=== PATIENT | male | born 1965 | race Caucasian/White ===

== ENCOUNTER 2021-09-02 10:14 | Outpatient (CLI) | payer OTHER, SELFPAY ==
[2021-09-02 10:36] LABS: Basophils Absolute Auto 0.1 K/mm3 (0.0-0.1); Basophils Percent Auto 0.7 % (0.2-1.2); Eosinophils Absolute Auto 0.2 K/mm3 (0-0.3); Hematocrit 51.4 % (42.0-52.0); Hemoglobin 17.3 g/dL (14.0-18.0); Immature Granulocyte Absolute 0.02 K/mm3 (0.00-0.031); Immature Granulocyte Percent A 0.3 % (0-0.5); Lymphocytes Absolute Auto 2.23 K/mm3 (0.9-3.2); Lymphocytes Percent Auto 29.9 % (18.3-44.2); Mean Corpuscular HGB Conc 33.7 g/dl (32-36); Mean Corpuscular Hemoglobin 31.2 pg (26-34); Mean Corpuscular Volume 92.8 fl (80-100); Mean Platelet Volume 9.1 fl (7.4-10.4); Monocytes Absolute Auto 0.5 K/mm3 (0.1-0.6); Neutrophils Absolute Auto 4.4 K/mm3 (1.3-6.7); Neutrophils Percent Auto 59.1 % (45.5-73.1); Platelet Count Result 233 k/mm3 (150-375); Red Blood Count 5.54 M/mm3 (4.6-6.20); Red Cell Distribution Width 12.1 % (11.5-14.5); White Blood Count 7.5 K/mm3 (4.5-10.0)
[2021-09-02 10:45] LABS: Hemoglobin A1C 7.8 % (<5.7)
[2021-09-02 10:50] LABS: Alanine Aminotransferase 75 U/L (4-50); Albumin Level 4.6 g/dL (3.5-5.1); Alkaline Phosphatase 80 U/L (38-126); Anion Gap 7 mmol/L (8-16); Aspartate Amino Transferase 47 U/L (17-59); Bilirubin,Total 0.9 mg/dL (0.2-1.3); Blood Urea Nitrogen 15 mg/dL (9-20); Calcium 9.5 mg/dL (8.4-10.2); Carbon Dioxide 29 mmol/L (22-30); Chloride 104 mmol/L (98-107); Cholesterol 188 mg/dL (0-200); Estimated Glomerular Filt Rate > 60; Glucose 209 mg/dL (65-110); HDL Direct 55 mg/dL; Potassium 4.4 mmol/L (3.4-5.0); Sodium 140 mmol/L (137-145); Triglycerides 84 mg/dL (<150); Uric Acid 7.5 mg/dL (3.5-8.5)
[2021-09-02 11:00] LABS: LDL Cholesterol Direct 107 mg/dL
[2021-09-06 22:06] LABS: PSA, Free 0.66 ng/mL; PSA, Total 2.3 ng/mL (<=4.0)
== END 2021-09-02 10:15 | disposition home or self-care (01) ==
PROVIDERS: PCP Family Medicine; Visit Provider Family Medicine
DX: I10 Essential (primary) hypertension (principal); R73.03 Prediabetes; Z13.220 Encounter for screening for lipoid disorders; E79.0 Hyperuricemia without signs of inflammatory arthritis and tophaceous disease; N40.1 Benign prostatic hyperplasia with lower urinary tract symptoms; R53.82 Chronic fatigue, unspecified
CPT/HCPCS: 36415; 80053; 80061; 83036; 84153; 84154; 84443; 84550; 85025

== ENCOUNTER 2021-11-29 00:15 | Day surgery (SDC) | payer OTHER, SELFPAY ==
[2021-11-17 10:42] VITALS: BMI 33.5
[2021-11-29 09:06] VITALS: BP 159/83; PULSE 81; RESP 16; TEMP 36.7; O2SAT 100
[2021-11-29] MEDS: LACTATED RINGERS 1,000 ML 150 ML IV CONT (09:26)
[2021-11-29 09:32] LABS: Glucose Point of Care 181 mg/dl (65-105)
--- NOTE | 2021-11-29 10:10 | WPDANESEPPF ---
Anes - Initial Pre Proc Eval Procedure: Operation Date: 11/29/21 10:30 Proposed Procedures p Screening Colonoscopy - Getachew Hardy MD Date/Time: 11/29/21 10:10 Surgeon: Getachew Hardy MD Pre Op Diagnosis: neoplasm screening Patient Data Age: 56 Gender: M Height: 1.98 m Weight: 132 kg Last Vital Signs Temp 98.1 F 11/29/21 09:06 Pulse 81 11/29/21 09:06 Resp 16 11/29/21 09:06 BP 159/83 H 11/29/21 09:06 Pulse Ox 100 11/29/21 09:06 Allergies Allergy/AdvReac Type Severity Reaction Status Date / Time No Known Allergies Allergy Verified 11/29/21 09:05 Home Medications Medication Instructions Recorded Confirmed Type allopurinol 100 mg tablet 100 mg PO DAILY 05/31/21 11/17/21 History atorvastatin 20 mg tablet 20 mg PO DAILY 05/31/21 11/17/21 History cholecalciferol (vitamin D3) 50 50 mcg PO DAILY 05/31/21 11/17/21 History mcg (2,000 unit) tablet indomethacin 25 mg capsule 25 mg PO Q6H 05/31/21 11/17/21 History lisinopril 40 mg tablet 40 mg PO DAILY 05/31/21 11/17/21 History metformin 500 mg tablet,extended 500 mg PO DAILY 05/31/21 11/17/21 History release 24hr tamsulosin 0.4 mg capsule 0.4 mg PO DAILY 05/31/21 11/17/21 History gabapentin 100 mg capsule 100 mg PO TID #90 cap 09/02/21 11/17/21 Rx dapagliflozin 10 mg tablet 10 mg PO DAILY 09/09/21 11/17/21 History sitagliptin 50 mg-metformin 1,000 1 tablet PO BID #60 tablet 09/09/21 11/17/21 Rx mg tablet Laboratory Tests 11/29/21 09:30 POC Capillary Glucose 181 mg/dl H mg/dl (65-105) Patient hx anesthesia problems: none Family hx anesthesia problems: none Results Review: All pre-operative results and documents have been reviewed as part of the pre-operative evaluation. [facility] Past Medical History Medical History Benign essential HTN Borderline diabetes mellitus BPH (benign prostatic hyperplasia) Gout Hyperlipidemia Spondylosis of lumbar spine Family History Family History Father Hypertension Mother History of stroke Social History Social History Social History: twice Smoking status: Never smoker Second hand tobacco smoke exposure: No Alcohol intake: current Drinks per week: 7 Substance use: never Substance use type: does not use Additional living arrangements comments: Pt and his girlfriend live together. Gender identity (if verbalized by the patient): Male Sexual Orientation (if Verbalized by the Patient): Straight or Heterosexual Anes - Eval Final PreProcedure Day of Procedure 11/29/21 10:10 Patient weight: obese Heart: regular rate and rhythm Lungs: clear to auscultation Airway: Mallampati scale class II Neurological: alert and oriented Last oral intake: >/= 8 hours ASA classification: III Emergent: no Anesthetic plan: proceed Anesthesia type and monitoring: general GIVS and standard monitoring Results Review: All pre-operative results and documents have been reviewed as part of the pre-operative evaluation. Informed Consent: The patient's anesthetic plan and its attendant risks and benefits were discussed with the patient/family/POA. Questions were solicited and answers provided to the satisfaction of the patient/family/POA.
--- NOTE | 2021-11-29 10:29 | PM.HPGS ---
History of Present Illness History of Present Illness Consent: Risks, benefits, and alternatives have been discussed and questions answered. Patient agrees to proceed with procedure. Chief complaint: neoplasm screening Narrative: Tj Clark is a 56 year old male here for screening colonoscopy, last one 4-5 years ago. Review of Systems Constitutional: Constitutional: Denies headache(s) and Denies weakness Eyes: Eyes: Denies blurry vision ENT: Reports Normal hearing present, Denies headache(s) and Denies neck pain Cardiovascular: Cardiovascular: Denies chest pain and Denies dyspnea Respiratory: Respiratory: Denies dyspnea Gastrointestinal: Gastrointestinal: Reports no additional gastrointestinal complaints Genitourinary: Genitourinary: Denies dysuria Musculoskeletal: Musculoskeletal: Denies neck pain Integumentary/Breasts: Skin/Breast: Denies dry skin Neurologic: Reports Normal hearing present, Denies headache(s) and Denies weakness Psychiatric: Psychiatric: Denies anxiety Endocrine: Endocrine: Denies change in body appearance Hematologic/Lymphatic: Hematologic/Lymphatic: Denies easy bleeding Allergic/Immunologic: Allergic/Immunologic: Denies urticaria PMFSH Past Medical History Medical History Benign essential HTN Borderline diabetes mellitus BPH (benign prostatic hyperplasia) Gout Hyperlipidemia Spondylosis of lumbar spine Family History Family History Father Hypertension Mother History of stroke Social History Social History Social History: twice Smoking status: Never smoker Second hand tobacco smoke exposure: No Alcohol intake: current Drinks per week: 7 Substance use: never Substance use type: does not use Additional living arrangements comments: Pt and his girlfriend live together. Gender identity (if verbalized by the patient): Male Sexual Orientation (if Verbalized by the Patient): Straight or Heterosexual Meds Home Medications and Allergies Home Medications Medication Instructions Recorded Confirmed Type allopurinol 100 mg tablet 100 mg PO DAILY 05/31/21 11/17/21 History atorvastatin 20 mg tablet 20 mg PO DAILY 05/31/21 11/17/21 History cholecalciferol (vitamin D3) 50 50 mcg PO DAILY 05/31/21 11/17/21 History mcg (2,000 unit) tablet indomethacin 25 mg capsule 25 mg PO Q6H 05/31/21 11/17/21 History lisinopril 40 mg tablet 40 mg PO DAILY 05/31/21 11/17/21 History metformin 500 mg tablet,extended 500 mg PO DAILY 05/31/21 11/17/21 History release 24hr tamsulosin 0.4 mg capsule 0.4 mg PO DAILY 05/31/21 11/17/21 History gabapentin 100 mg capsule 100 mg PO TID #90 cap 09/02/21 11/17/21 Rx dapagliflozin 10 mg tablet 10 mg PO DAILY 09/09/21 11/17/21 History sitagliptin 50 mg-metformin 1,000 1 tablet PO BID #60 tablet 09/09/21 11/17/21 Rx mg tablet Allergies Allergy/AdvReac Type Severity Reaction Status Date / Time No Known Allergies Allergy Verified 11/29/21 09:05 Vital Signs Vital Signs - 24 hr 11/29/21 09:06 Temperature 98.1 F Pulse Rate 81 Respiratory Rate 16 Blood Pressure 159/83 H Pulse Oximetry 100 Exam Const: General: comfortable and no acute distress HENMT: General nose exam: Normal nares present Eyes: General: appearance normal, both eyes and all related structures Neck: Neck: no JVD Resp: Auscultation: clear to auscultation bilaterally Cardio: Rate: regular rate Rhythm: regular rhythm GI: Inspection: non-distended GI Palp: Yes Soft to palpation Skin: General skin exam: normal color Neuro: General: gait normal Speech: normal speech Extrem: General: normal to inspection Psych: Mental Status: mental status grossly normal Assessment and Plan Assessment and plan (1) Colon cancer screening: Code(s)
[2021-11-29 10:53] VITALS: BP 116/77; PULSE 67; RESP 25; O2SAT 98
[2021-11-29 11:03] VITALS: BP 131/77; PULSE 62; RESP 16; O2SAT 99
[2021-11-29 11:13] VITALS: BP 136/88; PULSE 60; RESP 17; O2SAT 98
== END 2021-11-29 11:18 | disposition home or self-care (01) ==
PROVIDERS: PCP Family Medicine; Visit Provider Internal Medicine Gastroenterology
PROC: 0DJD8ZZ Inspection of Lower Intestinal Tract, Via Natural or Artificial Opening Endoscopic (ICD-10-PCS; CPT 45378; principal; 2021-11-29 10:30)
DX: Z12.11 Encounter for screening for malignant neoplasm of colon (principal); K63.5 Polyp of colon; I10 Essential (primary) hypertension; N40.0 Benign prostatic hyperplasia without lower urinary tract symptoms; E78.5 Hyperlipidemia, unspecified; M10.9 Gout, unspecified; M47.816 Spondylosis without myelopathy or radiculopathy, lumbar region; R73.03 Prediabetes; K64.8 Other hemorrhoids
CPT/HCPCS: 45380; 82948; 88305; J2704; J7120

== ENCOUNTER 2022-03-16 08:48 | Outpatient (CLI) | payer OTHER, SELFPAY ==
[2022-03-16 09:51] LABS: Creatinine Urine 121.8 mg/dL
[2022-03-16 09:55] LABS: MALB Creatinine Ratio 14.4 mg/g (0-30); Microalbumin Urine Random 17.5 mg/L (0-16.7)
[2022-03-16 10:07] LABS: Alanine Aminotransferase 50 U/L (6-50); Albumin Level 4.4 g/dL (3.5-5.1); Alkaline Phosphatase 64 U/L (38-126); Anion Gap 8 mmol/L (8-16); Aspartate Amino Transferase 32 U/L (17-59); Bilirubin,Total 0.8 mg/dL (0.2-1.3); Blood Urea Nitrogen 17 mg/dL (9-20); Calcium 9.5 mg/dL (8.4-10.2); Carbon Dioxide 28 mmol/L (22-30); Chloride 99 mmol/L (98-107); Cholesterol 171 mg/dL (0-200); Estimated Glomerular Filt Rate > 60; Glucose 175 mg/dL (65-110); HDL Direct 57 mg/dL; Potassium 4.3 mmol/L (3.4-5.0); Sodium 135 mmol/L (137-145); Triglycerides 84 mg/dL (<150)
[2022-03-16 10:18] LABS: LDL Cholesterol Direct 90 mg/dL
[2022-03-16 10:40] LABS: Hemoglobin A1C 7.3 % (<5.7)
== END 2022-03-16 08:49 | disposition home or self-care (01) ==
LOC: ANHLAB 08:51
PROVIDERS: PCP Family Medicine; Visit Provider Family Medicine
DX: I10 Essential (primary) hypertension (principal); E11.9 Type 2 diabetes mellitus without complications; E78.2 Mixed hyperlipidemia
CPT/HCPCS: 36415; 80053; 80061; 82043; 83036

== ENCOUNTER 2022-09-07 17:02 | Outpatient (CLI) | payer OTHER, SELFPAY ==
[2022-09-07 17:32] LABS: Basophils Percent Auto 0.5 % (0.2-1.2); Eosinophils Absolute Auto 0.2 K/mm3 (0-0.3); Eosinophils Percent Auto 3.6 % (0-4.4); Hematocrit 48.3 % (42.0-52.0); Hemoglobin 16.7 g/dL (14.0-18.0); Immature Granulocyte Absolute 0.01 K/mm3 (0.00-0.031); Immature Granulocyte Percent A 0.2 % (0-0.5); Lymphocytes Absolute Auto 2.43 K/mm3 (0.9-3.2); Lymphocytes Percent Auto 44.2 % (18.3-44.2); Mean Corpuscular HGB Conc 34.6 g/dl (32-36); Mean Corpuscular Hemoglobin 30.1 pg (26-34); Mean Corpuscular Volume 87.2 fl (80-100); Mean Platelet Volume 9.1 fl (7.4-10.4); Monocytes Absolute Auto 0.4 K/mm3 (0.1-0.6); Monocytes Percent Auto 6.7 % (2.6-8.5); Neutrophils Absolute Auto 2.5 K/mm3 (1.3-6.7); Neutrophils Percent Auto 44.8 % (45.5-73.1); Platelet Count Result 178 k/mm3 (150-375); Red Blood Count 5.54 M/mm3 (4.6-6.20); Red Cell Distribution Width 11.5 % (11.5-14.5); White Blood Count 5.5 K/mm3 (4.5-10.0)
[2022-09-07 17:43] LABS: Alanine Aminotransferase 69 U/L (6-50); Albumin Level 4.5 g/dL (3.5-5.1); Alkaline Phosphatase 76 U/L (38-126); Anion Gap 7 mmol/L (8-16); Aspartate Amino Transferase 45 U/L (17-59); Bilirubin,Total 0.6 mg/dL (0.2-1.3); Blood Urea Nitrogen 15 mg/dL (9-20); Carbon Dioxide 29 mmol/L (22-30); Chloride 97 mmol/L (98-107); Creatine Kinase 41 U/L (55-170); Estimated Glomerular Filt Rate > 60; Glucose 309 mg/dL (65-110); Potassium 4.4 mmol/L (3.4-5.0); Sodium 133 mmol/L (137-145)
[2022-09-07 19:27] LABS: Hemoglobin A1C 9.2 % (<5.7)
== END 2022-09-07 17:03 | disposition home or self-care (01) ==
LOC: ANHLAB 17:03
PROVIDERS: PCP Family Medicine; Visit Provider Family Medicine
DX: I10 Essential (primary) hypertension (principal); E11.9 Type 2 diabetes mellitus without complications; M79.10 Myalgia, unspecified site
CPT/HCPCS: 36415; 80053; 82550; 83036; 85025

== ENCOUNTER 2022-12-20 14:30 | Outpatient (RCR) | payer OTHER, SELFPAY | END 2023-01-29 08:44 | disposition home or self-care (01) | LOC: ANHDMC 14:30 | PROVIDERS: PCP Family Medicine; Visit Provider Family Medicine | DX: E11.22 Type 2 diabetes mellitus with diabetic chronic kidney disease (principal); N18.9 Chronic kidney disease, unspecified; E11.65 Type 2 diabetes mellitus with hyperglycemia; Z71.89 Other specified counseling | CPT/HCPCS: G0108; G0109 ==

== ENCOUNTER 2024-01-30 09:37 | Emergency (ER) | payer OTHER, SELFPAY ==
--- NOTE | ~2024-01-30 | XR_ITS ---
EXAMINATION: XR hand RT min 3V DATE: 01/30/2024 12:09 INDICATION: Right hand second digit injury. TECHNIQUE: 3 views of right hand were obtained. COMPARISON: None. FINDINGS: Bone alignment is normal. No fracture. 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 IMPRESSION: 1. No fracture or radiopaque foreign body. Reviewed, dictated and finalized at location A.
[2024-01-30 09:54] VITALS: BP 168/78; PULSE 88; RESP 16; TEMP 36.4; O2SAT 99
[2024-01-30] MEDS: cefTRIAXone 1 GM VIAL IM (12:10)
[2024-01-30] MEDS: LIDOCAINE HCL 1% LOCAL INJ 10 ML VIAL 2.1 ML XX (12:11)
--- NOTE | 2024-01-30 12:42 | ED.GENADULT ---
HPI - General Adult General Chief complaint: Wound/Laceration Stated complaint: lac Time Seen by Provider: 01/30/24 11:01 History of Present Illness HPI narrative: Tj Clark is a 58 y/o male who presents with reports of pulling wire yesterday morning and hit his right proximal index finger on a metal box an sliced it open. Related Data Home Medications Medication Instructions Recorded Confirmed allopurinol 100 mg tablet 100 mg PO DAILY 05/31/21 06/05/23 atorvastatin 20 mg tablet 20 mg PO DAILY 05/31/21 06/05/23 cholecalciferol (vitamin D3) 50 50 mcg PO DAILY 05/31/21 06/05/23 mcg (2,000 unit) tablet lisinopril 40 mg tablet 40 mg PO DAILY 05/31/21 06/05/23 tamsulosin 0.4 mg capsule 0.4 mg PO DAILY 05/31/21 06/05/23 insulin glargine 100 unit/mL (3 8 unit subcut QAM 06/05/23 06/05/23 mL) subcutaneous pen Allergies Allergy/AdvReac Type Severity Reaction Status Date / Time No Known Allergies Allergy Verified 01/30/24 10:39 Review of Systems Review of Systems: All systems reviewed & are unremarkable except as noted in HPI and below PMFSH Past Medical History Medical History Benign essential HTN BPH (benign prostatic hyperplasia) Gout Hyperlipidemia Muscle ache ROBERTA (obstructive sleep apnea) Spondylosis of lumbar spine Family History Family History Father Hypertension Mother History of stroke Social History Social History Social History: twice Smoking status: Never smoker Second hand tobacco smoke exposure: No Alcohol intake: current Substance use: never Substance use type: does not use Lack of Transportation: No Lack of Food: Never True Current Housing: I Have Housing Concerned About Future Housing: No Difficulty Paying Gas/Electric Bills: No Difficulty Paying for Meds: No Currently Unemployed: No Education: Decline to Answer Difficulty w/ Childcare or Family Care: No Living arrangements: with family Additional living arrangements comments: Pt and his girlfriend live together. Occupation/Education: occupation Gender identity (if verbalized by the patient): Male Sexual Orientation (if Verbalized by the Patient): Straight or Heterosexual Exam Narrative: GENERAL: Well-appearing, well-nourished, and in no acute distress. HEAD: Normocephalic, atraumatic. EYES: PERRLA and EOMI. ENT: Nares clear, no rhinorrhea or epistaxis. Mucous membranes moist. Oropharynx without tonsillar hypertrophy exudate or other lesions. Bilateral TMs pearly adan nonbulging NECK: Supple. No adenopathy or masses. No carotid bruits or JVD CHEST: Clear to auscultation. No respiratory distress. No wheezes rales or rhonchi HEART: Regular rate and rhythm. No murmur heard. Normal peripheral pulses. ABDOMEN: Soft, nontender, nondistended, normal active bowel sounds. EXTREMITIES: Normal range of motion. Right hand swelling about a 2 cm laceration across the MCP joint of the right index phalanx SKIN: Warm, dry, no rash. NEURO: No focal deficits. Alert and oriented x3. PSYCH: Normal mood and affect. Course Vital Signs Vital signs: Vital Signs Temperature 36.4 C 01/30/24 09:54 Pulse Rate 88 01/30/24 09:54 Respiratory Rate 16 01/30/24 09:54 Blood Pressure 168/78 H 01/30/24 09:54 Pulse Oximetry 99 01/30/24 09:54 Temperature 36.4 C 01/30/24 09:54 Pulse Rate 87 01/30/24 13:30 Respiratory Rate 18 01/30/24 13:30 Blood Pressure 172/67 H 01/30/24 13:30 Pulse Oximetry 98 01/30/24 13:30 Medical Decision Making [facility] Narrative Medical decision making narrative: approx 2cm laceration across the MCP joint of the right index phalanx Patient also has some swelling and some slight erythema Normal pulses / normal cap refill Concern for : fracture/ sprain/ infection Will update
[2024-01-30] MEDS: TETANUS,DIPHTHERIA,AC PERTUSSIS ADULT (0.5 ML) BOOSTRIX IM (13:04)
--- NOTE | 2024-01-30 13:21 | PC.NURSE ---
wound cleansed with wound cleanser and antibiotic ointment applied with a tefla and coban dressing.
[2024-01-30 13:30] VITALS: BP 172/67; PULSE 87; RESP 18; O2SAT 98
== END 2024-01-30 13:31 | disposition home or self-care (01) ==
PROVIDERS: Emergency Provider Nurse Practitioner Family; PCP Family Medicine
DX: S61.210A Laceration without foreign body of right index finger without damage to nail, initial encounter (principal); W26.8XXA Contact with other sharp object(s), not elsewhere classified, initial encounter; I10 Essential (primary) hypertension; E78.5 Hyperlipidemia, unspecified; G47.33 Obstructive sleep apnea (adult) (pediatric); Z79.4 Long term (current) use of insulin; Z23 Encounter for immunization
CPT/HCPCS: 73130; 90471; 90715; 96372; 99283; J0696